=== PATIENT | male | born 1955 | race Caucasian/White ===

== ENCOUNTER 2023-11-12 08:45 | Day surgery (SDC) | payer OTHER, SELFPAY ==
[2023-11-09 13:33] VITALS: BMI 31.0
[2023-11-12] VITALS (16 sets, daily range): BP systolic 76–157; BP diastolic 47–85; PULSE 53–68; RESP 12–19; TEMP 35.8–36.6; O2SAT 91–100; BMI 30.5
--- NOTE | 2023-11-12 | DI.RAD.S_ITS ---
PROCEDURE: XR HIP W PEL IF DONE RT 2V INDICATIONS: ANTERIOR RT HIP TECHNIQUE: 3 views of the hip were acquired. COMPARISON: [facility], , XR PEL MIN 3V, 11/12/2023, 15:00. Findings and impression: Fluoroscopic images obtained for right hip arthroplasty. Please see operative note for full details. Tubular densities are again seen in the pelvis. Dictated by: Brooks Garcia M.D. on 11/12/2023 at 16:38 Approved by: Brooks Garcia M.D. on 11/12/2023 at 16:39
--- NOTE | 2023-11-12 06:00 | DI.RAD.S_ITS ---
PROCEDURE: XR PEL MIN 3V INDICATIONS: jarrod TECHNIQUE: 3 view(s) of the pelvis acquired. COMPARISON: [facility], CR, XR HIP W PEL IF DONE RT 2V, 11/12/2023, 12:15. FINDINGS: Bones: Right hip arthroplasty. Medication beads are present. Left hip degenerative changes. Soft tissues: Tubular density again seen projecting over the pelvis. There are postsurgical changes. Vascular calcifications IMPRESSION: Postsurgical changes of right hip arthroplasty with medication beads present Dictated by: Brooks Garcia M.D. on 11/12/2023 at 22:24 Approved by: Brooks Garcia M.D. on 11/12/2023 at 22:25
[2023-11-12] MEDS: ACETAMINOPHEN 325 MG TABLET 975 MG PO (09:14)
[2023-11-12] MEDS: LACTATED RINGERS 1,000 ML 42 ML IV ×3 (09:16→15:05)
--- NOTE | 2023-11-12 11:20 | PM.PREOP ---
Pre-operative Note Interval Note History & Physical reviewed/Exam performed by Physician: Yes Changes to H&P: No
[2023-11-12] MEDS: TRANEXAMIC ACID 1,000 MG VIAL 2000 MG INJ ×2 (11:23→13:59)
--- NOTE | 2023-11-12 11:49 | SUR.OPER ---
Supine on padded [place] table with bilateral legs secured in padded positioning boots and suspended in positioning spars, operative leg in traction per surgeon. Head on one pillow. Arm on non-operative side secured on padded armboard <90 degrees abduction. Arm on operative side padded and resting across chest then secured with tape over sheet. Padded perineal post in place per surgeon.
[2023-11-12] MEDS: CEFAZOLIN 2 GM/100 ML PREMIX 100 ML IV ×2 (12:11→19:53)
[2023-11-12] MEDS: ROPIVACAINE/EPI/CLONIDINE/KET 50 ML SYRINGE INJ (12:24)
[2023-11-12] MEDS: VANCOMYCIN 1,000 MG VIAL 1000 MG TOP (13:21)
--- NOTE | 2023-11-12 14:49 | SUR.PHASEI ---
1430 - Patient complained of right elbow pain on admit to pacu. Able to move extremity without difficulty and no visible sign of injury noted. Anesthesia aware, no new order noted. Patient stretching arm, stating it is feeling better
--- NOTE | 2023-11-12 14:50 | PM.OP.1 ---
Operative Date/Time/Diagnoses Date of procedure: 11/12/23 Pre-op diagnosis: Right hip osteoarthritis Post-op diagnosis: other (Right hip osteoarthritis, iatrogenic right acetabular fracture ) Procedure & Clinicians Procedure: Right total hip arthroplasty with revision shell for fixation of acetabular fracture Same procedure as scheduled: Yes Surgeon: Zander Amaya Database Security Administrator: Ann Varghese Anesthesia Type: Spinal, Sedation and Local Operative Notes Estimated Blood Loss (mL): 500 Procedure in detail: Right Uncemented Direct Anterior Depuy Total Hip Arthroplasty: Implants: [employer] Redapt size 56 cup? Actis femoral stem size 8 high offset? 36 mm +1.5 ceramic femoral head? Procedure Summary: This 68-year-old male has a history of an abscess remotely at a distance site from his right hip. I therefore planned preoperatively to place calcium sulfate pellets impregnated with vancomycin around his prosthesis at the conclusion of his total hip arthroplasty. Intraoperatively he had a fracture of his acetabulum during impaction of the cup. I noted it as a nondisplaced crack fluoroscopically initially. I had planned to use a 3 hole cup and did not feel that this would provide the best fixation of his fracture which appeared to be a transverse fracture. I transitioned to working on the femur while we investigated the availability of revision style multi hole shells. I placed a lap in the femur to limit bleeding and then returned to the acetabulum and inserted the revision multi hole shell with multiple screws that spanned across the fracture. I did note fracture displacement while attempting to impact in the cup and did not have robust pinch fit prior to screw fixation. The femoral side proceeded routinely with placement of the templated implants and appropriate parameters on all measures with the initial trialing so the templated implants were placed as final implants. Procedure in Detail: This patient was seen preoperatively and evaluated for hip pain which was refractory to numerous nonoperative treatment modalities. Their hip pain correlated with radiographic changes demonstrating significant degeneration in the hip joint. The risks and benefits of continued nonoperative management versus operative management were discussed at length and all of the patient?s questions were answered. Additional educational materials providing further details beyond our discussion in clinic were provided via a publicly available patient education video which included the incidence of medical complications associated with total hip arthroplasty, reasons for revision following total hip arthroplasty, and patient satisfaction rates following total hip arthroplasty. That video can be accessed at [email or web address] . With this understanding of the risks inherent to the procedure, the patient elected to move forward with operative management. Following preoperative optimization, the patient was scheduled for surgery. The patient was met in the preoperative holding area the day of the procedure and all questions were answered. The patient?s nares were swabbed with betadine in order to decolonize them from MRSA. Informed consent was signed and the right limb was marked with indelible ink.? The patient was brought back to the operating room where anesthesia was induced. The patient was transferred to the [place] table and all bony prominences were padded. The operative site was prepped and draped in the usual sterile fashion. Prior to incision, tranexamic acid and cefazolin were administered. Operative templating images were displayed demonstrating the anticipated implant sizes and correct operative extremity. A timeout procedure was performed verifying the patient?s identity, medical comorbidities, allergies, relevant medications, anesthesia type and the surgical plan. All present were in agreement. The assistance of a physician trust administrative assistant was required for positioning, room setup, soft tissue retraction and wound closure. Without this assistance, the procedure would have been significantly more challenging and time consuming.?? A direct anterior approach to the hip was utilized. This was performed with a longitudinal incision through a Heuter interval. The incision was planned 2 cm distal and 2 cm lateral to the ASIS extending towards the lateral patella, in line with the muscle body of the TFL. Following incision, the subcutaneous tissue was dissected while taking care to avoid injury to the lateral femoral cutaneous nerve. The fascia overlying the TFL was identified by dissecting off the overlying fat and identifying perforating vessels to the TFL. The TFL fascia was incised and dissected away from the medial border of the TFL. A cobra retractor was placed over the superior femoral neck between the abductors and the hip capsule and used to reflect the TFL laterally. A Archer self-retainer was then placed in the distal aspect of the wound between the TFL and the rectus femoris. This was tensioned to open up the direct anterior interval and the lateral circumflex vessels were identified and coagulated using electrocautery. The floor of the TFL fascia was incised, exposing the pericapsular fat overlying the hip capsule. A second cobra retractor was placed on the inferior femoral neck. A double-bent soft tissue retractor was placed on the anterior wall of the acetabulum and used to tension the reflected head of rectus femoris, which was then released in order to limit soft tissue tension. A capsulotomy was made in the midline of the anterior hip capsule in line with the femoral neck ending at the vastus tubercle. The double-bent retractor was removed in order to limit the amount of time that a soft tissue retractor remained on the anterior wall and protect the femoral nerve. Tag stitches were placed in the superior and inferior leaflets of the hip capsule. An Yinka soft tissue retractor was introduced over the tag stitches and tensioned in the interval between the rectus femoris and the TFL in order to retract and protect those muscles. The cobra retractors were replaced intracapsularly, with one over the superior neck in the pocket created by the base of the greater trochanter and the other on the femoral head. The capsulotomy was extended laterally to the base of the greater trochanter and medially to the lesser trochanter. This required externally rotating the hip. Once the lesser trochanter had been identified, a neck cut was planned according to measurements from preoperative templating. A ruler was cut at the length measured between the superior aspect of the lesser trochanter and the collar of the prosthesis. This line was extended towards the inferior aspect of the lateral cobra retractor to plan a cut which would leave minimal residual femoral neck laterally. The neck was cut at 60 degrees of external rotation along that line. A second cut was performed to remove a large napkin ring and facilitate head extraction. The napkin ring cut and femoral head were removed.?? A broad anterior wall retractor was placed between the labrum and the anterior capsule so that the anterior capsule would prevent capturing and pinching the femoral nerve anteriorly. An additional retractor was placed on the posterior wall. External rotation and traction were applied through the [place] table so that the cut surface of the femoral neck would not restrict access to the acetabulum. The labrum was excised sharply and the pulvinar was excised with electrocautery to limit bleeding from branches of the obturator artery. Acetabular reamers were selected based on preoperative templating and measurements of the excised femoral head. These were introduced into the acetabulum. Fluoroscopy was utilized to replicate a standing AP pelvis radiograph by centering over the pelvis, rotating until there was appropriate symmetry between the obturator foramen, and introducing caudal tilt to match the position of the pubic symphysis relative to the sacrococcygeal junction according to the patient?s anatomy. Fluoroscopy was utilized to ensure appropriate reaming depth. Once satisfied with the reaming depth corresponding to the preoperative template and the pinch fit between the columns, an appropriate sized acetabular cup was selected which would provide 1 mm of press-fit. This cup was introduced and manipulated until appropriate abduction and anteversion angles were obtained with careful attention to appropriate abduction and anteversion angles as evaluated by the position of the cup relative to the anterior and posterior ortiz of the acetabulum and the AP fluoroscopy which recreated the patient?s standing radiograph. The cup was impacted into place. I noted that there was a crack in the pelvis at this point in time. I adjusted fluoroscopy to obtain better definition of the crack felt that it extended through medial wall acetabulum. Therefore removed the cup inspected within the reamed cavity. Found that point in time a crack in the acetabulum which correlated to the location that I had noticed fluoroscopically. I therefore felt that this did likely represent true fracture although at that point in the procedure was nondisplaced. I therefore removed all the instrumentation from the acetabulum and moved to the femur. Attention was then turned to the femur. All retractors were removed, traction was released, a retractor was placed in the interval between the hip capsule and the gluteus minimus, and the hip was externally rotated to 90 degrees. Traction was applied through the [place] table to tension the lateral capsule and this was released using electrocautery. Traction was released and a [place] hook was placed posteriorly around the proximal femur at the level of the vastus ridge. The table height was lowered in order to restrict the tension on the anterior structures during hip hyperextension to limit the risk of femoral nerve palsy. With traction off and the hip at 90 degrees of external rotation, the hip was hyperextended and adducted while manually elevating the femur away from the acetabulum with the [place] hook to ensure it would not be caught behind the greater trochanter. An asymmetric retractor was placed over the calcar and a broad double-pronged retractor was placed over the greater trochanter. The tag stitch capturing the lateral leaflet of the capsule was moved to the medial side, leaving the conjoined and piriformis tendons isolated in the face of the greater trochanter. The hip was externally rotated and elevated. A release of the conjoined tendon was necessary in order to obtain adequate exposure for broaching. The canal was opened with an opening broach and a rasp was used to remove cancellous bone. A rongeur was used to remove the residual lateral bone at the base of the greater trochanter to avoid placing the stem in varus. The femur was then broached to the appropriate sized stem yielding good rotational fit and fill of the canal as well as appropriate version of the stem trial. I removed the broach and placed a lap in the femur to limit bleeding while I returned to the acetabulum. We eventually were able to determine that we did have multi hole cup from a different vendor available in our hospital. I opened the corresponding trace and placed a 56 mm cup after reaming line to line with a 56 mm Reamer to limit any distraction through the fracture site. I initially manipulated into place with a straight handle activated sludge operator but found that it was not able to achieve any pinch fit because of the fracture. I therefore removed the straight handle activated sludge operator and manipulated the cup into an appropriate abduction and anteversion angle. I drilled for a nonlocking screw extending up the ilium in a standard trajectory and placed that screw to suck down the cup to bone. I then placed 2 screws in the ischium which were locking screws, 1 screw near the pubis, and 2 additional screws up the ilium. I did note that in the process of placing the screws the fracture now had a step-off which was evident fluoroscopically. I placed a liner and impacted into place I then returned to the broaching position and removed the lap and reinserted the size 8 broach. Initial trialing was performed with a size 8 broach, a high offset neck and a +1.5 head. I initially manually externally rotated the hip and found no instability with maximum external rotation. I then locked the hip in 45 degrees of external rotation and dropped it to the floor with traction off which demonstrated no instability. An AP pelvis fluoroscopic image matching the preoperative standing radiograph with both lesser trochanters visible and both hips in 40 degrees of external rotation demonstrated appropriate leg length and offset. AP and lateral hip fluoroscopic images were obtained to evaluate the broach size which demonstrated good canal fill. The hip was dislocated and I returned to the broaching position. Based on my evaluation during initial trialing I planned to place the definitive implants. The definitive stem was placed and the trunnion was cleaned and dried. I placed a ceramic head onto the trunnion and impacted it into place on the Humphries taper.?? All retractors were removed and the hip was reduced. A dilute mixture of betadine and peroxide was used to bathe the soft tissues during final fluoroscopic assessment. Appropriate component positioning was confirmed on an AP pelvis radiograph with the operative and nonoperative legs in 40 degrees of external rotation, evaluating leg length and offset. Appropriate stem fill was evaluated on AP and lateral hip radiographs. No fractures were identified on these radiographs. There was no hip instability with maximum external rotation as well as a 45 degree drop test. The hip was copiously irrigated with pulse lavage. The capsule was closed with absorbable interrupted suture. The TFL fascia was closed with barbed suture while carefully protecting the lateral femoral cutaneous nerve from entrapment. A mixture of Ropivacaine, Epinephrine, Clonidine and Toradol was infiltrated throughout the soft tissues. The skin was closed with 2-0 and 3-0 sutures. Surgical glue was applied and a soft dressing was placed.??The sponge, instrument and needle counts were reported as being correct at the end of the case.??No obvious complications occurred. The patient was transferred from the [place] table back to a stretcher. The patient emerged from anesthesia without difficulty and was taken to the PACU in a stable condition.? Plan for aftercare: Anterior hip precautions Touch down weight-bearing on operative side given intraoperative fracture Aspirin 81 twice per day for DVT prophylaxis Anticipate discharge home tomorrow or Wednesday depending on mobilization with weight-bearing restrictions Multimodal pain regimen with no IV opioids ordered Apply ice machine to operative hip. Ensure that sufficient ice is in the chamber for the pad to remain cold Follow up at [facility] in 2 weeks Detailed postoperative instructions available at [email or web address]
[2023-11-12 14:56] LABS: Add Manual Diff / Slide Review NO; Basophils Absolute Auto 0 /uL (0-100); Basophils Percent Auto 0.2 % (0-2); Eosinophils Absolute Auto 0 /uL (0-450); Eosinophils Percent Auto 0.5 % (2-4); Hematocrit 32.9 % (41-53); Hemoglobin 11.7 g/dL (13.5-17.5); Lymphocytes Absolute Auto 700 /uL (1100-4500); Lymphocytes Percent Auto 8.5 % (25-40); Mean Corpuscular HGB Conc 35.5 % (30-36); Mean Corpuscular Hemoglobin 30.8 PG (26-34); Mean Corpuscular Volume 86.6 fL (80-100); Monocytes Absolute Auto 200 /uL (0-900); Monocytes Percent Auto 2.5 % (3-14); Neutrophils Absolute Auto 7500 /uL (1500-7000); Neutrophils Percent Auto 88.3 % (50-75); Platelet Count 168 X10^3/uL (150-400); Red Cell Distribution Width 14.6 % (11.6-14.8); White Blood Cell Count 8.5 X10^3/uL (4.5-11.0)
[2023-11-12] MEDS: ACETAMINOPHEN 325 MG TABLET 650 MG PO ×2 (16:08→21:49)
[2023-11-12] MEDS: IBUPROFEN 600 MG TABLET PO ×2 (16:08→21:49)
[2023-11-12] MEDS: LACTATED RINGERS 1,000 ML 100 ML IV ×2 (16:09→22:14)
--- NOTE | 2023-11-12 16:12 | PC.NURSE ---
Pt arrived from PACU at 1550, VSS on RA, A&Ox4, c/o 3/10 pain to R hip. Aquacel dressing c/d/i, ice machine in place. Pt able to move both legs bilaterally, L>R, unable to lift R leg off bed. Slight numbness and tingling to bilat LE. Lungs CTA, bowel sounds hypoactive. Pt and family oriented to room and call light. Bed in low position, call light within reach, bed alarm activated, SCDs on.
[2023-11-12] MEDS: ONDANSETRON 4 MG ODT PO (17:16)
[2023-11-12] MEDS: OXYCODONE IR 5 MG TABLET PO ×2 (17:16→20:34)
[2023-11-12] MEDS: MAGNESIUM OXIDE 400 MG TABLET PO (17:43)
[2023-11-12] MEDS: METOPROLOL IR 50 MG TABLET PO (20:33)
[2023-11-12] MEDS: DOCUSATE 100 MG CAPSULE PO (20:33)
[2023-11-12] MEDS: lisinopriL 20 MG TABLET 40 MG PO (20:33)
[2023-11-12] MEDS: ASPIRIN EC 81 MG TABLET PO (20:34)
--- NOTE | 2023-11-12 21:03 | PM.PN.1 ---
Subjective Subjective Interval history: I came by to see Axel and his this evening. He was resting comfortably and reports having minimal pain. He has urinated. He is diabetic and not on a sliding scale currently so I am going to initiate that this evening. We discussed his touchdown weight-bearing status at length. Inevitably he will end up putting some amount of weight on his operative extremity into some degree this is unavoidable because I do not want to restrict him entirely to a wheelchair while he is recovering from the the fracture that was sustained during today's surgery. I discussed ways that he could continue getting exercise while the fracture is healing, suggesting that an exercise bike could be a good option for him. His hospital stay may be prolonged because of his weight-bearing status and difficulty with mobilization which may require more time for training with a walker. We will see how things unfold tomorrow when he begins mobilizing Exam Vital Signs (past 8 hours): - 11/12/23 14:28 11/12/23 14:32 11/12/23 14:38 Temperature 97.3 F L Pulse Rate 63 65 67 Respiratory Rate 12 13 13 Blood Pressure 76/54 L 87/48 L 92/67 Pulse Oximetry 91 96 97 Oxygen Delivery Method Room Air Room Air Room Air Oxygen Flow Rate 0 0 0 11/12/23 14:42 11/12/23 14:53 11/12/23 15:13 Temperature 97.6 F Pulse Rate 61 68 64 Respiratory Rate 13 13 14 Blood Pressure 95/47 L 100/55 L 103/62 Pulse Oximetry 99 99 97 Oxygen Delivery Method Room Air Room Air Room Air Oxygen Flow Rate 0 0 0 11/12/23 15:19 11/12/23 15:35 11/12/23 15:50 Temperature 97.2 F L 96.7 F L Pulse Rate 60 55 L 57 L Respiratory Rate 14 16 12 Blood Pressure 112/62 110/64 107/59 L Pulse Oximetry 98 95 95 Oxygen Delivery Method Room Air Room Air Oxygen Flow Rate 0 0 0 11/12/23 16:00 11/12/23 16:20 11/12/23 16:50 Temperature 96.5 F L 96.5 F L Pulse Rate 57 L 58 L Respiratory Rate 12 12 Blood Pressure 113/62 116/65 Pulse Oximetry 97 97 Oxygen Delivery Method Room Air Oxygen Flow Rate 0 0 11/12/23 17:50 11/12/23 19:30 11/12/23 20:33 Temperature 96.7 F L Pulse Rate 68 56 L 67 Respiratory Rate 12 12 Blood Pressure 109/73 118/63 123/69 Pulse Oximetry 96 Oxygen Delivery Method Oxygen Flow Rate 0 Oxygen Delivery Method Room Air Oxygen Flow Rate 0 Objective Labs 11/12/23 14:30 Labs: Laboratory Results - last 24 hr 11/12/23 14:30 WBC 8.5 RBC 3.80 L Hgb 11.7 L Hct 32.9 L MCV 86.6 MCH 30.8 MCHC 35.5 RDW 14.6 Plt Count 168 Neut % (Auto) 88.3 H Lymph % (Auto) 8.5 L [place] % (Auto) 2.5 L Eos % (Auto) 0.5 L Baso % (Auto) 0.2 Neut # (Auto) 7500 H Lymph # (Auto) 700 L [place] # (Auto) 200 Eos # (Auto) 0 Baso # (Auto) 0 PFSH Medical History (Updated 11/09/23 @ 14:29 by Lety Ruiz RN) History of COVID-19 (~2020) Hepatitis C Seizure MRSA (methicillin resistant Staphylococcus aureus) Autonomic neuropathy Depression Anxiety Vitamin D deficiency Hepatitis A Polyp of colon Hearing loss HTN (hypertension) HLD (hyperlipidemia) GERD (gastroesophageal reflux disease) Diabetes Arthritis Surgical History (Updated 11/09/23 @ 14:17 by Lety Ruiz RN) History of surgery Hx of arthroscopy of left knee Hx of arthroscopy of right knee Hx of hand surgery (08/2023) History of carpal tunnel surgery of left wrist History of carpal tunnel surgery of right wrist Hx of colonoscopy (12/28/22) Social History household members: spouse, family and children Smoking Status: Never smoker alcohol intake: former Assessment & Plan Time-Based Coding :: [TOTAL MINUTES] spent with patient and on the chart (including review of chart, obtaining history, exam, reviewing outside data, placing orders, documenting exam and treatment plan, and counseling patient) on [DATE]. Quality VTE Deep Vein Thrombosis/Pulmonary Embolism Present on Admission: No
[2023-11-13] MEDS: hydrOXYzine HCL 25 MG TABLET 50 MG PO (01:32)
[2023-11-13 03:00] VITALS: BP 100/54; PULSE 50; RESP 17; TEMP 36.5; O2SAT 94
[2023-11-13] MEDS: OXYCODONE IR 5 MG TABLET PO ×2 (03:07→08:43)
[2023-11-13] MEDS: ACETAMINOPHEN 325 MG TABLET 650 MG PO ×2 (04:12→11:29)
[2023-11-13] MEDS: CEFAZOLIN 2 GM/100 ML PREMIX 100 ML IV (04:12)
[2023-11-13] MEDS: IBUPROFEN 600 MG TABLET PO ×2 (04:12→11:28)
[2023-11-13] MEDS: PANTOPRAZOLE DR 20 MG TABLET PO (06:13)
[2023-11-13 06:48] LABS: Hematocrit 27.9 % (41-53)
[2023-11-13 07:45] VITALS: BP 118/50; PULSE 69; RESP 15; TEMP 36.6; O2SAT 96
[2023-11-13 08:00] VITALS: BP 101/46; PULSE 61; RESP 12; TEMP 36.6; O2SAT 99
[2023-11-13] MEDS: INSULIN LISPRO 100 UNIT/ML 3ML VIAL SUBCUT ×2 (08:37→12:14)
[2023-11-13] MEDS: ASPIRIN EC 81 MG TABLET PO (08:42)
[2023-11-13] MEDS: DOCUSATE 100 MG CAPSULE PO (08:42)
[2023-11-13] MEDS: METOPROLOL IR 50 MG TABLET PO (08:42)
[2023-11-13] MEDS: LORATADINE 10 MG TABLET PO (08:44)
--- NOTE | 2023-11-13 09:10 | P.DS_ITS ---
History of Present Illness History of Present Illness Date Patient Seen: 11/13/23 Time Patient Seen: 09:10 Chief complaint: Right KIRTI *OPB* Narrative: Operative Date/Time/Diagnoses Date of procedure: 11/12/23 Pre-op diagnosis: Right hip osteoarthritis Post-op diagnosis: other (Right hip osteoarthritis, iatrogenic right acetabular fracture ) Procedure & Clinicians Procedure: Right total hip arthroplasty with revision shell for fixation of acetabular fracture Same procedure as scheduled: Yes Surgeon: Zander Amaya Mandolin Repair Person: Ann Varghese Anesthesia Type: Spinal, Sedation and Local Operative Notes Estimated Blood Loss (mL): 500 Procedure in detail: Right Uncemented Direct Anterior Depuy Total Hip Arthroplasty: Implants: * [employer] Redapt size 56 cup? * Actis femoral stem size 8 high offset? * 36 mm +1.5 ceramic femoral head? Discharge Providers Provider Discharge Date: 11/13/23 Primary care physician: Leonardo Ireland PA-C Consults: 11/12/23 06:00 Consult to Anesthesiology Routine Comment: Consulting Provider: Anesthesiologist Reason for consultation: Regional block for post operative pain control 11/12/23 15:50 Consult to Discharge Planning Routine Comment: Consult to Occupational Therapy Evaluate & Treat Comment: Physician Instructions: Evaluate and treat Consult to Physical Therapy Evaluate & Treat Comment: Physician Instructions: post op KIRTI protocol Discharge provider: Ann Varghese PA-C Summary Hospital Course Discharge Diagnosis: right hip osteoarthritis and right iatrogenic acetabular fracture, s/p right total hip arthroplasty Hospital Course: Mr Christy's hospital course was remarkable for intraoperative pelvic fracture during placement of the acetabular cup. On the morning of POD# 1, he was doing well and joked 'I feel like someone broke my pelvis.' His pain was well- controlled with oral medication, and he was eating and voiding without difficulty. He had not yet worked w/ PT. We discussed that he would be touch- down weightbearing only for about 6 weeks, and whether he and his felt comfortable with his returning home with this restriction. His just recovered from an ankle injury that forced her to be nonweightbearing for an extended period of time, so they are both knowledgeable about following restrictions and their home is set up to accommodate him. Exam Vital Signs (past 8 hours): - 11/13/23 03:00 11/13/23 08:00 Temperature 97.7 F 97.9 F Pulse Rate 50 L 61 Respiratory Rate 17 12 Blood Pressure 100/54 L 101/46 L Pulse Oximetry 94 99 Oxygen Flow Rate 0 Oxygen Delivery Method Room Air Oxygen Flow Rate 0 Narrative Exam Narrative: 4/5 stremgth in hip flexors, quadriceps, hamstrings, 5/5 DF, PF, EHL on right. Sensation to light touch intact throughout RLE, calf soft and compressible. Aquacel dressing CDI. Objective Labs 11/13/23 05:40 Labs: Laboratory Results - last 24 hr 11/12/23 11/13/23 14:30 05:40 WBC 8.5 RBC 3.80 L Hgb 11.7 L 10.0 L Hct 32.9 L 27.9 L MCV 86.6 MCH 30.8 MCHC 35.5 RDW 14.6 Plt Count 168 Neut % (Auto) 88.3 H Lymph % (Auto) 8.5 L Collin % (Auto) 2.5 L Eos % (Auto) 0.5 L Baso % (Auto) 0.2 Neut # (Auto) 7500 H Lymph # (Auto) 700 L Collin # (Auto) 200 Eos # (Auto) 0 Baso # (Auto) 0 PFSH Medical History (Updated 11/09/23 @ 14:29 by Lety Ruiz RN) History of COVID-19 (~2020) Hepatitis C Seizure MRSA (methicillin resistant Staphylococcus aureus) Autonomic neuropathy Depression Anxiety Vitamin D deficiency Hepatitis A Polyp of colon Hearing loss HTN (hypertension) HLD (hyperlipidemia) GERD (gastroesophageal reflux disease) Diabetes Arthritis Surgical History (Updated 11/13/23 @ 09:22 by Ann Varghese PA-C) History of surgery Hx of arthroscopy of left knee Hx of arthroscopy of right knee Hx of hand surgery (08/2023) History of carpal tunnel surgery of left wrist History of carpal tunnel surgery of right wrist Hx of colonoscopy (12/28/22) Social History household members: spouse, family and children Smoking Status: Never smoker alcohol intake: former Discharge Assessment & Plan Assessment and Plan Assessment: Right hip osteoarthritis and right iatrogenic acetabular fracture, s/p right total hip arthroplasty Plan of Treatment: Ok to d/c home later today if pt and spouse feel confident with his ability to transfer and ambulate. Toe-touch weightbearing only to RLE; he can use a stationary bicycle and do straight leg raises and hamstring curls during his recovery. ASA 81mg BID x 6 weeks for VTE prophylaxis, multimodal pain control. Discharge Plan Discharge Plan Patient Disposition: Home Discharge orders & Medications Discharge Orders: Discharge (Order); Ordered 11/13/23 Ordered By: Ann Varghese Prescriptions: New oxycodone 5 mg Tablet 5 mg PO Q4-6H PRN (Reason: Pain, Severe (7-10)) Qty: 30 0RF acetaminophen 325 mg Tablet 650 mg PO Q6H Qty: 240 0RF ondansetron 4 mg Tablet,Disintegrating 4 mg PO Q6HR PRN (Reason: nausea and vomiting) Qty: 20 0RF polyethylene glycol 3350 17 gram Powder In Packet 17 g PO DAILY PRN (Reason: Constipation) Qty: 100 0RF Continued cyclobenzaprine 10 mg Tablet 10 mg PO BEDTIME PRN (Reason: Muscle Spasm) cetirizine 10 mg Tablet 10 mg PO DAILY atorvastatin 10 mg Tablet 10 mg PO DAILY hydroxyzine HCl 50 mg Tablet 50 mg PO BEDTIME PRN (Reason: Sleep) chlorthalidone 25 mg Tablet 37.5 mg PO DAILY amlodipine 5 mg Tablet 5 mg PO BID aspirin [Aspir-81] 81 mg Tablet,Delayed Release (Dr/Ec) 81 mg PO DAILY sildenafil 100 mg Tablet 100 mg PO DAILY PRN (Reason: Sexual Activity) Rx Instructions: administer 30 minutes to 4 hours before activity lidocaine 5 % Adhesive Patch,Medicated 1 patch TOPICAL DAILY PRN (Reason: Pain) Rx Instructions: leave on most painful area for up to 12 hrs metoprolol tartrate 50 mg Tablet 50 mg PO BID benazepril 40 mg Tablet 40 mg PO BEDTIME omeprazole 20 mg Tablet,Delayed Release (Dr/Ec) 20 mg PO DAILY Follow up/Referrals: Leonardo Ireland PA-C [Primary Care Provider] - Zander Amaya MD [Physician] - 11/24/23 2:20 pm (Follow up w/ Eliezer Meléndez PA-C, at [facility] office in [place].) Diet/Activity/Treatments Diet: Diet as Tolerated Activity: Touchdown weightbearing to right leg. Anterior hip precautions. Cold/Heat Therapy: Ice to hip as needed for pain. Skin/Wound/Dressing Care Report to your healthcare provider any signs of infection, such as:: chills, fever, night sweats, unusual drainage and unusual redness Dressing: May shower. Leave dressing in place until follow up in office. No bathing or otherwise soaking incision. Call the office if the dressing becomes saturated inside. Visit Report/Discharge Packet Instructions: DI for Hip Replacement, DI for Prescription Opioid Use Stand Alone Forms: Patient Portal/API, Surgery Discharge Discharge Data Primary Care Provider: Leonardo Ireland Attending Provider: Zander Amaya VTE Deep Vein Thrombosis/Pulmonary Embolism Present on Admission: No
[2023-11-13 11:29] VITALS: BP 100/45; PULSE 60; RESP 14; TEMP 36.7; O2SAT 95
--- NOTE | 2023-11-13 11:30 | PT.IIE ---
Current Diagnoses Unilateral primary osteoarthritis, right hip (11/12/23) Surgery Performed Operation Date: 11/12/23 11:15 Actual Procedures p Total Hip Arthroplasty/Anterior Approach(Right) - Zander Amaya MD Surgical History (Last Updated 11/09/23 @ 14:17 by Lety uRiz, RN) History of carpal tunnel surgery of left wrist History of carpal tunnel surgery of right wrist History of surgery Hx of arthroscopy of left knee Hx of arthroscopy of right knee Hx of colonoscopy (12/28/22) Hx of hand surgery (08/2023) Medical History (Last Updated 11/09/23 @ 14:29 by Lety Ruiz, CANDI) Anxiety Arthritis Autonomic neuropathy Depression Diabetes GERD (gastroesophageal reflux disease) Hearing loss Hepatitis A Hepatitis C History of COVID-19 (~2020) HLD (hyperlipidemia) HTN (hypertension) MRSA (methicillin resistant Staphylococcus aureus) Polyp of colon Seizure Vitamin D deficiency Physical Therapy Inpatient Evaluation/Re-Eval M1 PT/OT-IP Prior Functional Status Start: 11/13/23 13:21 Freq: NEEDED Status: Active Protocol: Document 11/13/23 11:30 AB (Rec: 11/13/23 13:35 AB [id number]) Medical Review Prior Functional Status Medical History Reviewed Yes Communication able to make needs known Mobility and Gait pt stated that he was independent with all mobilities and ambulation without AD Social History Household Members spouse,family,children Living Arrangements Mobile home Number of Floors (Floors) One Floor Number of Stairs To Enter/Railing? spouse stated that they can go round the house throught the lawn to get to the back side of the house to enter without steps from the front: 4 steps R rail ascending + 2 steps without rails + 3 steps R rail ascending to enter Home Environment High Toilet,Walk in Shower Home Equipment Manual Wheelchair,Bedside Commode,Raised Toilet Seat Without Armrests,Shower Seat with Backrest,Hand Held Shower M2 PT-IP Current Condition Start: 11/13/23 13:21 Freq: NEEDED Status: Active Protocol: Document 11/13/23 11:30 AB (Rec: 11/13/23 13:35 AB [id number]) Physical Therapy Current Condition Current Condition Evaluation Date 11/13/23 Treatment Diagnosis s/p R KIRTI anterior; difficutly in walking Onset Date 11/12/23 M3 PT-IP Subjective Start: 11/13/23 13:21 Freq: NEEDED Status: Active Protocol: Document 11/13/23 11:30 AB (Rec: 11/13/23 13:35 AB [id number]) Subjective Physical Therapy Visit Type Type Initial Evaluation Visit Start Time 11:30 Visit Stop Time 12:25 Number of RN EXAMINER Visits 0 Physical Therapy Visit Comments Patient Comments agreeable to do PT Therapy Pain Assessment Pain When Pain Assessed At Rest Pain Present Pain Present Pain Reported Location right hip Intensity 3 Scale Used Numeric (0 - 10) Pain Management Techniques Apply Cold,Distraction, Modification of Treatment,Re- positioning,Timing of Activity with Medications M4 PT-IP Mobility and Gait Start: 11/13/23 13:21 Freq: NEEDED Status: Active Protocol: Document 11/13/23 11:30 AB (Rec: 11/13/23 13:35 AB [id number]) PT-Bed Mobility Assessment Supine to Sit Supine to Sit Standby Assistance PT-Transfer Assessment Sit to and From Stand Sit to and from Stand Contact Guard Assistance,1 Person Assistance,Use of Upper Extremities Equipment Transfer Assistive Device Gait Belt,Front Wheeled Walker Orthotic/Prosthetic Devices or Brace: No Transfers Transfer Destination Chair Transfer Technique ambulated Transfer Ability Level of Assist Contact Guard Assistance,1 Person Assistance,Use of Upper Extremities Comments Mobility Comments pt supine in bed. spouse in room. obtained PLOF and home set up from pt and spouse. post-op folder provided to pt and reviewed contents. educated pt regarding R hip anterior precautions and TTWB on RLE. BP supine: 104/49. completed supine to sit SBA. able to sit on EOB SBA. no c/o dizziness. BP sittin/60. PT demonstrated and educated pt on how to maintain TTWB on RLE for sit to stand and ambulation using fWW. pt completed sit to stand SBA and ambulated to the chair using FWW CGA ~ 20 ft. pt rested. caregiver training conducted. educated spouse on how to use safety belt and how to assist pt. spouse was able to put safety belt on pt. pt completed sit to stand and ambulation in room using FWW ~ 30 ft CGA with spouse assisting. pt sat back on chair. positioned pt on the chair. call light and table placed within reach. informed pt and spouse to use manual w/c to get into the house for safety and agreed. pt stated that they have 2 SILs that can assist them to get into the house Gait Assessment Gait Gait Assistance Required: Contact Guard Assist Distance (Feet) 30 Able to Maintain Weight Bearing Status Yes During Gait Gait Deviations General Gait Pattern Decreased Feet Clearance,Step- to Gait Factors Limiting Gait Function Factors Limiting Gait Function Decreased Activity Tolerance, Decreased Strength,Limited Range of Motion,Pain,Poor Balance,Poor Safety Awareness PT-Balance Assessment Sitting Balance and Reactions Static Sitting Balance Ability Normal Dynamic Sitting Balance Ability Good Standing Balance and Reactions Static Standing Balance Ability Fair Dynamic Standing Balance Ability Fair Device Used FWW M5 PT-IP Objective Assessments Start: 11/13/23 13:21 Freq: NEEDED Status: Active Protocol: Document 11/13/23 11:30 AB (Rec: 11/13/23 13:35 AB [id number]) Orientation Orientation/Cognition Level of Alertness Alert Orientation Name,Place,Situation Language Function Ability Hard of Hearing Safety Awareness Decreased Safety Awareness Memory Description No Deficits Noted Gross Range of Motion Lower Extremity ROM Assessment Within Functional Limits Strength Lower Extremity Strength Assessment Right Impaired Hip 3+/5 Knee 4/5 Sensation Assessment Sensation Gross Sensation WNL Muscle Tone Muscle Tone WNL Yes M6 PT-IP Treatment Start: 11/13/23 13:21 Freq: NEEDED Status: Active Protocol: Document 11/13/23 11:30 AB (Rec: 11/13/23 13:35 AB [id number]) Physical Therapy Treatment Education Education Provided Precautions,Weight Bearing Status,Post-Op Packet,Safety M7 PT-IP Assessment and Plan Start: 11/13/23 13:21 Freq: NEEDED Status: Active Protocol: Document 11/13/23 11:30 AB (Rec: 11/13/23 13:35 AB [id number]) PT Summary Assessment and Plan Potential Rehabilitation Potential Good Status of Condition at Evaluation Stable Summary Impairments Pain,ROM,Strength,Balance, Coordination,Bed Mobility, Transfers,Gait,Activity Tolerance Assessment Summary pt is a 68 y/o M s/p R KIRTI anterior POD 1. pt with R hip anterior precautions and is TTWB on RLE due to R acetabular fx. pt requiring CGA with mobility using FWW. recommending use of manual w/c for outdoor/long distance ambulation for safety. caregiver training conducted and spouse was able to assist pt with mobility. pt has out pt PT setup. pt may go home when medically stable. Goals Bed Mobility Goal Independent Transfer Goal Independent,Front Wheeled Walker Gait Goal Independent,Front Wheel Walker Gait Distance 50 Days to Meet Goals 5 Frequency of Treatment Frequency Of Treatment Twice a Day Treatment Plan Physical Therapy Treatment Plan Bed Mobility Training,Transfer Training,Gait Training, Therapeutic Exercise,Balance Retraining,Post Op Education, Discharge Planning,Hot or Cold Pack,Neuromuscular Re-ed, Coordination Retraining,Manual Therapy Precautions Anterior Hip Precautions No Hip Extension,No Hip External Rotation Weight Bearing Status Weight Bearing Status Touch Down Weight Bearing Allowed Weight Bearing Amount (enter % RLE TTWB or #) (%) Recommendations To Nursing Amount of Assist Needed 1 Person Assist Discharge Recommendations PT Discharge Recommendations Home with Assistance, Outpatient PT Transportation Needs at Discharge Private Vehicle,Wheelchair/ Cabulance
--- NOTE | 2023-11-13 12:46 | CM.DANOTE ---
Addendum entered by PATRICK Graves 11/13/23 13:18: ADD: SW spoke to PT and she confirms that pt was able to participate and spouse was bedside for CG training and they have a w/c they can use for longer distances and pt able to maintain toe touch. PT recommending home with spouse assist and feels pt would benefit from outpt PT rather than HH at this time. Pt and spouse anxious to discharge home today and deny any further needs at this time. BF Original Note: Patient is a 68 yo male who was admitted [facility] on 11/12/23 for RTHA. Pt has [employer] [facility] ADV for insurance and his PCP is Leonardo Ireland. EMR was reviewed. Per Ortho Surgeon, pt had fx during surgery and now toe touch weight bearing and to work with PT today to determine if stable for discharge today vs tomorrow and any d/c needs. PT ordered and pending. SW met bedside with pt and spouse and explained role and they confirm they live in [place] at home and both are active and independent at baseline. Pt quite active and exercises daily and excited to get back to being able to run longer distances and has his exercise routine set up for home. Pt has hx of attempting to utilize the Pain Clinic and outpt PT but did not feel either were that helpful. Spouse confirms she is available for assist and they were surprised by pt's fx during the surgery but preference remains to discharge home today if possible. Pt has no hx of HH or SNF and states spouse is his POA. Plan: SW to follow closely for PT eval this morning for d/c recommendations for discharge today vs tomorrow and to r/o HH. PATRICK Graves Discharge Planning/Care Management CM Discharge Assessment Start: 11/13/23 12:44 Freq: Status: Active Protocol: Document 11/13/23 12:44 BF (Rec: 11/13/23 12:46 BF [id number]) Discharge Planning Assessment Assigned Jewish Thought Professor PATRICK Zaragoza DPOA/Assigned Designee Name spouse Kaitlyn Contact Information [phone] Advance Directives? Yes Advance Directives on File No History Provided By Patient,Significant Other, Medical Record Has Patient been admitted in last 30 No days? Prior Living Arrangements Mobile home Household Members spouse,family,children Type of transporation used prior to Drives own vehicle admit Independent with ADL's Yes Is patient alert and oriented? Yes Caregiver for Another No Community Services used prior to Physical Therapy admission: DME Already Rented / Owned FWW / Walker Patient/Family Preference Home with Home Health,OP PT Therapy Comment Pending PT eval and recommendations Barriers to Discharge No Discharge Plan Home with Home Health Transportation Arrangement Spouse bedside and to transport at d/c Additional Comment Pending PT eval and recommendations Whiteboard Updated in Patient Room with Yes name and ext. # of Jewish Thought Professor Review Status In Process Please Provide Date Initial DC 11/13/23 Assessment Was Performed Next Review Type Continued Stay Review Pre-Anesthesia Assessment Start: 11/09/23 13:33 Freq: Status: Active Protocol: Document 11/09/23 13:33 CAB (Rec: 11/09/23 14:36 CAB [id number]) Pre-Anesthesia Assessment Patient Information Reviewed Via Phone Assessment Assessment Completed With Patient Diagnostic Results BMP/CMP,CBC,EKG Comment Outside labs/EKG scanned Primary Care Provider Leonardo Ireland Comment Pre-op 09/29/23 scanned and in surgery folder Seen Specialist in Last 12 Months Yes Specialist Seen Orthopedist Primary Language Romanian Cooling System Operator Required No Height 175.26 cm Weight 95.254 kg Body Mass Index (BMI) 31.0 Hearing Ability Hearing Impaired Visual Assist Glasses Dentition Type Full- Upper & Lower Barriers to Learning Auditory,Visual Hx Anesthesia Reactions No Hx Family Anesthesia Reaction No Hx Malignant Hyperthermia No Hx Blood Transfusions Yes: Infancy Hx Blood Transfusion Reaction No Anesthesia Review Requested No Golf Ball Molder No alcohol intake former Smoking Status Never smoker Substance Use Type does not use Pain Present Pain Reported Musculoskeletal Symptoms Abnormal Gait,Difficulty Walking,Joint Pain History of Falling (Recent or History of Yes ) Patient is completely paralyzed or No completely immobile Mental Status Oriented to own ability Is patient on oxygen? No Does patient have ZAVALETA/SOB No Hx Sleep Apnea No Currently Taking a Beta Belen Yes: Metoprolol Hx Chest Pain No Hx SOB No Hx Syncope or Dizziness Yes: Resolved using beta belen Anti-Coagulant Therapy Yes: ASA-advised to hold 1 week prior per PCP Has a Operations Processor No Cardiac Testing No Hx Pacemaker/ICD No Pacemaker Rep Required? No Cardiac Clearance Received No Diet Type At Home Regular Dysphagia No Gastrointestinal Symptoms None Bladder Pattern Nocturia Urinary Catheter Present No Hx Urinary Self Catheterization No Diabetes Yes HgbA1C 4.9 Date 09/29/23 Hx Drug Resistant Organism Yes: MRSA 15-20 years ago Marital Status Lives With spouse,family,children Current Living Arrangements Mobile home Support System Family,Spouse Does the Patient Have Assistance After Yes Surgery Patient Discharge Plan Description Return Home Comment Pt advised same day surgery per surgeon Feels Safe in Current Environment Yes Been Physically Hurt or Threatened By a No Person in Current Environment Do you have thoughts of harming yourself None or others? Are you currently considering suicide? No Do you have a plan to hurt yourself or No Plan others? Do You Have Any Spiritual Beliefs That No May Affect Your HC Choices? Do You Have Any Cultural Practices That No May Affect Your HC Choices? Who Can We Speak to About Patient's Care Family, friends Identifying Code for Release of Patient Declines to issue Information Health Care Proxy/Next of Kin Kaitlyn () Health Care Proxy Emergency Contact Name Kaitlyn () Emergency Contact Advance Directives? Yes Advance Directives on File No Requested Patient Bring Advanced Yes Directives DOS Power of Site Lead No PAC Instructions Assistance for 24 hours post- op,Diabetes instructions, Durable medical equipment, Medications to take/avoid,No ETOH/petroleum product on skin DOS,NPO,Post-op transportation,Pre-surgical wash,Sensory aids,Sturdy shoes /comfortable clothes,Do not bring valuables and remove jewelry
== END 2023-11-13 13:51 | disposition home or self-care (01) ==
LOC: OR 08:51 → AC 08:51
PROVIDERS: Anesthesiology; PCP Physician Assistant Medical; Referring Provider Orthopaedic Surgery Adult Reconstructive Orthopaedic Surgery; Visit Provider Orthopaedic Surgery Adult Reconstructive Orthopaedic Surgery
PROC: (CPT 27130; principal; 2023-11-12 11:15)
DX: M16.11 Unilateral primary osteoarthritis, right hip (principal); S32.454A Nondisplaced transverse fracture of right acetabulum, initial encounter for closed fracture; X58.XXXA Exposure to other specified factors, initial encounter; Y92.234 Operating room of hospital as the place of occurrence of the external cause
CPT/HCPCS: 27130; 36415; 72190; 73502; 76000; 82962; 85014; 85018; 85025; 97161; 97530; C1713; C1776; A9270; J0690; J1100; J1170; J1815; J2405; J2704